=== PATIENT | female | born 1955 | race Caucasian/White ===

== ENCOUNTER 2024-04-22 12:52 | Emergency (ER) | payer MEDICARE, OTHER, SELFPAY ==
[2024-04-22 12:55] VITALS: BP 130/89; PULSE 91; RESP 20; TEMP 36.6; O2SAT 97
--- NOTE | 2024-04-22 12:57 | ED.GENADULT ---
HPI - General Adult General Chief complaint: Dental/Oral Stated complaint: dental pain Source: patient Mode of arrival: ambulatory Limitations: no limitations History of Present Illness HPI narrative: complains of left upper incisor this been loose since November started to hurt yesterday. She says it was 10/10 this morning and a 5/10 now she has been taking Tylenol/ibuprofen. Otherwise patient is eating drinking voiding and stooling fine walking talking seen hearing fine no cough fever sore throat runny nose or any other complaints. She has appoint with a dentist in for days. Related Data Home Medications Medication Instructions Recorded Confirmed secukinumab 150 mg/mL subcutaneous 150 mg subcut [id number] 04/22/24 04/22/24 syringe (Cosentyx) Allergies Allergy/AdvReac Type Severity Reaction Status Date / Time cephalexin [From Keflex] AdvReac Hives Verified 04/22/24 12:54 codeine AdvReac Nausea Verified 04/22/24 12:54 Review of Systems Review of Systems: All systems reviewed & are unremarkable except as noted in HPI and below Exam Narrative: White female patient with no apparent distress.? Head normocephalic, atraumatic.? Eyes conjunctiva pink sclera nonicteric.? Extraocular movements are intact.? Ears externally normal.? Oropharynx is clear with moist mucous membranes without exudates.? Left upper incisor slightly lose and decayed mildly tender over the gums. Neck is supple nontender no lymphadenopathy.? .? Lungs are clear.? Heart is regular rate and rhythm without murmurs gallops or rubs.? Extremities no cyanosis clubbing or edema.? Skin is warm and dry without rashes or lesions.? Neurological patient is alert and oriented x4.? Motor and sensory grossly intact.? Gait is normal. Medical Decision Making MDM Narrative Medical decision making narrative: ? Patient placed in room: One ? History and physical was performed. Independent Historian: patient External Source Review: Differential Dx includes but not limited to: abscess dental caries Medications were Reviewed: home meds reviewed Medications given: refused Toradol shot Independently Interpreted by me: Shared decision Making: evaluation was discussed all questions were asked and answered patient agreed with the plan. She take amoxicillin 500 mg 3 times a day for 10 days Tylenol ibuprofen Social Situation Impacting Patients Care: DISCHARGE DIAGNOSIS: abscess tooth DISPOSITION: discharge home CONDITION AT DISCHARGE: stable Discharge Plan Discharge Clinical Impression: Dental abscess Patient Disposition: Home, Self-Care Condition: Stable Instructions: Antibiotic Form, Dental Abscess (ED) Additional Instructions: follow-up with your dentist this week as scheduled. Amoxicillin 500 3 times a day for 10 days. Tylenol and or ibuprofen as needed for pain. Do not take more than 4000 mg of acetaminophen / Tylenol in 24 hours. Return if you get worse or develops any new symptoms. Prescriptions: New amoxicillin 500 mg capsule 500 mg PO TID 10 Days Qty: 30 0RF Rx Instructions: patient has taken amoxicillin before without any problems. No Action Cosentyx 150 mg/mL Syringe 150 mg SUBCUT [id number] Follow-up/Referrals: Harms,Jeffrey Ramirez M.D. [Primary Care Provider] - Time of Disposition: 13:05
== END 2024-04-22 13:10 | disposition home or self-care (01) ==
LOC: CHSED 13:12
PROVIDERS: Emergency Provider Emergency Medicine; PCP Family Medicine
DX: K04.7 Periapical abscess without sinus (principal)
CPT/HCPCS: 99283

== ENCOUNTER 2024-06-07 08:48 | Outpatient (CLI) | payer MEDICARE, OTHER, SELFPAY ==
--- NOTE | ~2024-06-07 | XR_ITS ---
3 VIEWS LUMBAR SPINE Ordering provider: Ute stout History: . lower back pain with bl sciatica X Fri. Surgery 35yrs ago . Comparison: None. FINDINGS: VERTEBRAL BODIES:Postoperative changes at the level of L5-S1. No visible fracture or subluxation. De generative changes of the spine. DISK SPACES: Narrowing of the disc L2-L3, L3-L4 and L5-S1. SOFT TISSUES: Normal. IMPRESSION: No acute osseous abnormality lumbar spine. Reviewed, dictated and finalized at location A.
== END 2024-06-07 08:49 | disposition home or self-care (01) ==
LOC: CHSIMG 08:56
PROVIDERS: PCP Family Medicine
DX: M54.42 Lumbago with sciatica, left side (principal); M54.41 Lumbago with sciatica, right side
CPT/HCPCS: 72110

== ENCOUNTER 2024-06-13 14:32 | Outpatient (CLI) | payer MEDICARE, OTHER, SELFPAY ==
[2024-06-15 12:18] LABS: NIL 0.01 IU/mL; Quantiferon TB Plus, 1T NEGATIVE (NEGATIVE)
== END 2024-06-13 14:33 | disposition home or self-care (01) ==
PROVIDERS: PCP Family Medicine
DX: Z79.899 Other long term (current) drug therapy (principal)
CPT/HCPCS: 36415; 86480

== ENCOUNTER 2024-08-17 09:53 | Outpatient (CLI) | payer MEDICARE, OTHER, SELFPAY | END 2024-08-17 09:54 | disposition home or self-care (01) | LOC: ANHAUDIO 09:56 | PROVIDERS: PCP Family Medicine; Visit Provider Otolaryngology | DX: H90.6 Mixed conductive and sensorineural hearing loss, bilateral (principal); H61.23 Impacted cerumen, bilateral; L40.9 Psoriasis, unspecified | CPT/HCPCS: 92557; 92567 ==